=== PATIENT | female | born 1945 | race Hispanic/Latino ===

== ENCOUNTER 2017-03-27 07:03 | Day surgery (SDC) | payer MEDICARE ==
[2016-01-25 17:25] VITALS: PULSE 78
[2017-01-16 07:51] VITALS: BMI 38.2
[2017-03-27] MEDS ORDERED: Propofol 10 mg/ml Inj (20 ML) ONE ×2 (08:59→09:12)
[2017-03-27] MEDS ORDERED: Midazolam 2 MG/2 ML VIAL ONE (08:59)
[2017-03-27] MEDS ORDERED: Lactated Ringer's 1,000 ML IV ONE (09:08)
--- NOTE | 2017-03-27 09:13 | CP.SDSHP ---
Same Day Surgery H & P - History Proposed Procedure: EGD Pre-Op Diagnosis: History of gastric ulcer - Previous Medical/Surgical History Cardiac: Hypertension Endocrine/Metabolic: Thyroid Disease, Diabetes Comments: Anemia, hyperlipidemia Previous Surgical History: cardiac cath, AVR, hysterectomy, ankle surgery - Allergies Allergies: Allergies No Known Allergies Allergy (Verified 10/23/15 13:21) - Current Medications Current Medications: See reconciliation sheet - Physical Exam General Appearance: WD WN female in NAD Vital Signs: Vital Signs 03/27/17 07:30 Temperature 97.3 F L Pulse Rate 58 L Respiratory 19 Rate Blood Pressure 157/58 H O2 Sat by Pulse 98 Oximetry Mental Status: Alert & Oriented x3 Neuro: WNL Heart: WNL Lungs: WNL GI: WNL - {Optional Preform as Required} Abdomen: WNL - Impression Impression: Gastric ulcer Pt. Evaluated Today:Candidate for Anesthesia & Procedure: Yes - Date & Time Date: 03/27/17 Time: 09:14 Short Stay Discharge - Short Stay Discharge Admitting Diagnosis/Reason for Visit: H PYLORI POSITIVE, ANEMIA Disposition: HOME/ ROUTINE
[2017-03-27 09:17] VITALS: O2SAT 99
[2017-03-27 11:03] VITALS: TEMP 97
[2017-03-27 11:11] VITALS: BP 150/70; PULSE 62; RESP 20
== END 2017-03-27 10:45 | disposition home or self-care (01) ==
LOC: C.ENDO 07:03
PROVIDERS: ATTEND Internal Medicine Gastroenterology
DX: K25.7 Chronic gastric ulcer without hemorrhage or perforation (principal); I85.00 Esophageal varices without bleeding; K29.70 Gastritis, unspecified, without bleeding; D13.0 Benign neoplasm of esophagus; K31.9 Disease of stomach and duodenum, unspecified; K44.9 Diaphragmatic hernia without obstruction or gangrene; E11.9 Type 2 diabetes mellitus without complications; E78.5 Hyperlipidemia, unspecified; D64.9 Anemia, unspecified; I10 Essential (primary) hypertension
CPT/HCPCS: 43239; 82948; 88305; 88312; 88342; J2250; J2704; J7120

== ENCOUNTER 2018-04-16 13:35 | Outpatient (CLI) | payer MEDICARE | END 2018-04-16 13:36 | disposition home or self-care (01) | LOC: C.RADIC 13:35 | DX: M25.532 Pain in left wrist (principal); M79.642 Pain in left hand ==